=== PATIENT | male | born 1985 | race Hispanic/Latino ===

== ENCOUNTER 2018-03-02 06:25 | Emergency (ER) | payer SELFPAY ==
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
== END 2018-03-02 07:59 | disposition home or self-care (01) ==
LOC: ERS 06:25
DX: S20.219A Contusion of unspecified front wall of thorax, initial encounter (principal); F17.210 Nicotine dependence, cigarettes, uncomplicated; F41.9 Anxiety disorder, unspecified; V49.9XXA Car occupant (driver) (passenger) injured in unspecified traffic accident, initial encounter; F43.10 Post-traumatic stress disorder, unspecified
CPT/HCPCS: 71046; 93005